=== PATIENT | male | born 1985 | race Caucasian/White ===

== ENCOUNTER 2016-07-26 21:58 | Emergency (ER) | payer SELFPAY ==
--- NOTE | 2016-07-26 22:10 | CPEKG ---
Heart Rate: 87 RR Interval: 690 P-R Interval: 168 QRSD Interval: 100 QT Interval: 348 QTC Interval: 419 P Maxwell: 71 QRS Maxwell: 66 T Wave Maxwell: 24 EKG Severity - NORMAL ECG - EKG Impression: SINUS RHYTHM Electronically Signed By: Puja Bales 26-Jul-2016 22:46:27
[2016-07-26] MEDS ORDERED: NS 1,000 ML IV ONE (22:19)
--- NOTE | 2016-07-26 22:19 | EDPHY ---
H & P Stated Complaint: SOB/Anxiety Time Seen by Provider: 07/26/16 22:10 HPI/ROS: Chief Complaint: Shortness of breath HPI: 30-year-old male had the onset of shortness of breath approximately 30 minutes ago while he was watching his girlfriend's children arguing. Symptoms last about 30 minutes. Does not have a history of the same. He recently moved here from [place]. He did have some symptoms of stomach virus of about 4 days ago but has otherwise been ill for the last 2 days. Does not drink smoke or use any recreational drugs. Does not have a history of depression or anxiety. Did have some mild tightness in the central chest. No family history of coronary artery disease. No fevers chills. No cough. No nausea or vomiting. States he has been drinking plenty of fluids. States he is feeling better now. ROS: 10 point Review of Systems is negative except as noted in the HPI. PMH: None Medications: None Allergies: Sulfa Social History: No smoking, no alcohol, no recreational drug use Family History: non-contributory Physical Exam: Gen: Awake, Alert, No Distress HEENT: Nose: no rhinorrhea Eyes: PERRLA, EOMI Mouth: Moist mucosa Neck: Supple, no JVD Chest: nontender, lungs clear to auscultation Heart: S1, S2 normal, no murmur Abd: Soft, non-tender, no guarding Back: no CVA tenderness, no midline tenderness Ext: no edema, non-tender Skin: no rash Neuro: CN II-XII intact, Sensation grossly intact, Strength 5/5 in bilateral upper and lower extremities - Personal History Current Tetanus/Diphtheria Vaccine: Yes Current Tetanus Diphtheria and Acellular Pertussis (TDAP): Yes - Medical/Surgical History Hx Asthma: No Hx Chronic Respiratory Disease: No Hx Diabetes: No Hx Cardiac Disease: No Hx Renal Disease: No Hx Cirrhosis: No Hx Alcoholism: No Hx HIV/AIDS: No Hx Splenectomy or Spleen Trauma: No - Social History Smoking Status: Never smoked Constitutional: Initial Vital Signs Temperature (C) 36.9 C 07/26/16 22:06 Heart Rate 86 07/26/16 22:06 Respiratory Rate 14 07/26/16 22:06 Blood Pressure 128/78 H 07/26/16 22:06 O2 Sat (%) 96 07/26/16 22:06 O2 Delivery Mode Room Air Allergies/Adverse Reactions: Sulfa (Sulfonamide Antibiotics) Allergy (Verified 07/26/16 22:20) Home Medications: Medication Instructions Recorded NK [No Known Home Meds] 07/26/16 Medical Decision Making ED Course/Re-evaluation: Patient is improved after IV fluid hydration. ECG is normal. Vital signs are entirely normal. Oxygen saturations normal. He has no cough or chest pain. No shortness of breath here. I suspect. Patient has had some dehydration as he recently had a gastroenteritis. There might be some anxiety component as well. No evidence of a significant respiratory process. Will discharge with referral for outpatient follow-up. - Data Points Laboratory Results: Laboratory Results 07/26/16 22:10 07/26/16 22:10 07/26/16 07/26/16 22:10 22:10 WBC 11.04 10^3/uL H 10^3/uL (3.80-9.50) RBC 5.10 10^6/uL 10^6/uL (4.40-6.38) Hgb 15.2 g/dL g/dL (13.7-17.5) Hct 43.8 % % (40.0-51.0) MCV 85.9 fL fL (81.5-99.8) MCH 29.8 pg pg (27.9-34.1) MCHC 34.7 g/dL g/dL (32.4-36.7) RDW 12.0 % % (11.5-15.2) Plt Count 405 10^3/uL H 10^3/uL (150-400) MPV 9.3 fL fL (8.7-11.7) Neut % (Auto) 62.4 % % (39.3-74.2) Lymph % (Auto) 30.2 % % (15.0-45.0) Andrews % (Auto) 4.9 % % (4.5-13.0) Eos % (Auto) 0.4 % L % (0.6-7.6) Baso % (Auto) 0.4 % % (0.3-1.7) Nucleat RBC Rel Count 0.0 % % (0.0-0.2) Absolute Neuts (auto) 6.90 10^3/uL H 10^3/uL (1.70-6.50) Absolute Lymphs (auto) 3.33 10^3/uL H 10^3/uL (1.00-3.00) Absolute Monos (auto) 0.54 10^3/uL 10^3/uL (0.30-0.80) Absolute Eos (auto) 0.04 10^3/uL 10^3/uL (0.03-0.40) Absolute Basos (auto) 0.04 10^3/uL 10^3/uL (0.02-0.10) Absolute Nucleated RBC 0.00 10^3/uL 10^3/uL (0-0.01) Immature Gran % 1.7 % H % (0.0-1.1) Immature Gran # 0.19 10^3/uL H 10^3/uL (0.00-0.10) Sodium 140 mEq/L mEq/L (134-144) Potassium 4.2 mEq/L mEq/L (3.5-5.2) Chloride 101 mEq/L mEq/L (97-110) Carbon Dioxide 24 mEq/l mEq/l (22-31) Anion Gap 15 mEq/L mEq/L (8-16) BUN 16 mg/dL mg/dL (7-23) Creatinine 1.0 mg/dL mg/dL (0.7-1.3) Estimated GFR > 60 Glucose 113 mg/dL H mg/dL (70-100) Calcium 10.0 mg/dL mg/dL (8.5-10.4) Medications Given: Discontinued Medications Sodium Chloride (Ns) 1,000 mls @ 0 mls/hr IV ONCE ONE PRN Reason: Wide Open Stop: 07/26/16 22:20 Last Admin: 07/26/16 22:47 Dose: 1,000 mls Departure - Departure Disposition: Home, Routine, Self-Care Clinical Impression: Dehydration, Dyspnea Condition: Good Instructions: Dehydration (ED) Additional Instructions: Follow up with primary care physician in 3-4 days for re-evaluation. Return to the emergency depart for increasing shortness of breath, chest pain, nausea, vomiting, fevers, chills, or any other concerns. Referrals: Patient,NotPresent [Unknown] - As per Instructions Yamile Adames MD [Medical Doctor] - As per Instructions
[2016-07-26 22:26] LABS: % IMMATURE GRANULYOCYTES 1.7 % (0.0-1.1); ABSOLUTE IMMATURE GRANULOCYTES 0.19 10^3/uL (0.00-0.10); ADD DIFF? NO; ADD MORPH? NO; ADD SCAN? NO; ATYPICAL LYMPHOCYTE FLAG 60 (0-99); FRAGMENT RBC FLAG 0 (0-99); HEMATOCRIT 43.8 % (40.0-51.0); HEMOGLOBIN 15.2 g/dL (13.7-17.5); LEFT SHIFT FLG 20 (0-99); LIPEMIA HEMOLYSIS FLAG 90 (0-99); MEAN CELL HEMOGLOBIN 29.8 pg (27.9-34.1); MEAN CELL HEMOGLOBIN CONCENTR. 34.7 g/dL (32.4-36.7); MEAN CELL VOLUME 85.9 fL (81.5-99.8); MEAN PLATELET VOLUME 9.3 fL (8.7-11.7); PLATELET CLUMPS FLAG 10 (0-99); PLATELET COUNT 405 10^3/uL (150-400)
[2016-07-26 22:35] LABS: ANION GAP 15 mEq/L (8-16); CARBON DIOXIDE 24 mEq/l (22-31); CHLORIDE 101 mEq/L (97-110); GLOMERULAR FILTRATION RATE > 60; GLUCOSE 113 mg/dL (70-100); POTASSIUM 4.2 mEq/L (3.5-5.2); SODIUM 140 mEq/L (134-144)
[2016-07-26 23:49] VITALS: BP 125/75; PULSE 72; RESP 16; TEMP 98.6; O2SAT 98
== END 2016-07-26 23:49 | disposition home or self-care (01) ==
DX: R06.00 Dyspnea, unspecified (principal); E86.0 Dehydration